=== PATIENT | male | born 1980 | race Caucasian/White ===

== ENCOUNTER 2018-05-25 21:16 | Emergency (ER) | payer MEDICAID ==
[~2018-05-25] VITALS: Ht 175.3 cm; Wt 102.1 kg
[~2018-05-25 21:16] MED LIST: LANTUS SUBQ
[2018-05-25 21:23] VITALS: BP 106/86
[2018-05-25] MEDS ORDERED: LORA10TA19 PO (21:28)
[2018-05-25] MEDS ORDERED: LISI2.5T5 PO (21:29)
[2018-05-25] MEDS ORDERED: SIMV5TAB83 PO (21:29)
--- NOTE | 2018-05-25 21:29 | NUR ---
PT AMBULATED TO LOBBY WITH VSS. ACCOMPANIED BY FAMILY.
--- NOTE | 2018-05-25 21:42 | NUR ---
PT AMBULATED TO BED 2 WITH VSS. ACCOMPANIED BY AND SON.
--- NOTE | 2018-05-25 21:45 | NUR ---
PT PRESENTED ER WITH C/O PAIN TO THE LEFT FOOT 2 TOE X 1 DAY. PT STATED HE DROPPED A STOVE ON THE FOOT. PAIN LEVEL IS 8/10 AT THIS TIME. PT HAS SOME SWELLING AND BRUISING TO SIGHT. PT HAS NKA AND MEDICAL HX IS DM. PT IS A/O X 4.SKIN IS PINK/WARM/DRY; EVEN AND STEADY GAIT; VSS; PATIENT POSITIONED FOR COMFORT; HOB ELEVATED; BEDRAILS UP X2; BED DOWN. ER MD MADE AWARE OF PT STATUS.
--- NOTE | 2018-05-25 22:03 | NUR ---
X RAY AT PT BEDSIDE
[2018-05-25] MEDS ORDERED: ACETAMINOPHEN EXTRA STRENGTH 500 MG TAB PO ONE (23:50)
[2018-05-26 00:15] VITALS: BP 112/84
== END 2018-05-26 00:15 | disposition home or self-care (01) ==
LOC: MED 21:16
DX: S99.922A Unspecified injury of left foot, initial encounter (principal); E11.9 Type 2 diabetes mellitus without complications; I10 Essential (primary) hypertension; Z79.4 Long term (current) use of insulin; Z79.899 Other long term (current) drug therapy; W20.8XXA Other cause of strike by thrown, projected or falling object, initial encounter; Y93.89 Activity, other specified; Y92.89 Other specified places as the place of occurrence of the external cause; Y99.8 Other external cause status
CPT/HCPCS: 73630; 99284; Q0092

== ENCOUNTER 2019-05-21 19:32 | Emergency (ER) | payer MEDICAID ==
[~2019-05-21] VITALS: Ht 180.3 cm; Wt 101.3 kg
[~2019-05-21 19:32] MED LIST changes: +LISI2.5T5 PO; +LORA10TA19 PO; +SIMV5TAB55 PO
[2019-05-21 19:40] VITALS: BP 128/83
--- NOTE | 2019-05-21 19:51 | NUR ---
PT AMBULATES TO LOBBY WITH STEADY GAIT. ACCOMPANYING.
--- NOTE | 2019-05-21 20:32 | NUR ---
PT AMBULATED TO BED 3.
[2019-05-21] MEDS ORDERED: MULTIVITAMIN-12 10 ML, THIAMINE 100 MG, MAGNESIUM SULFATE 50% 2,000 MG, FOLIC ACID 1 MG... IV SCH ×5 (21:00)
[2019-05-21] MEDS ORDERED: PANTOPRAZOLE 40 MG INJ VIAL IVP ONE (21:00)
[2019-05-21] MEDS ORDERED: ONDANSETRON 4 MG/2 ML VIAL IVP ONE (21:00)
[2019-05-21] MEDS ORDERED: THIAMINE 200 MG/2 ML VIAL ONE (21:06)
[2019-05-21] MEDS ORDERED: FOLIC ACID 5 MG/ML SYR ONE (21:06)
[2019-05-21] MEDS ORDERED: MULTIVITAMIN-12 10 ML VIAL IV ONE (21:06)
[2019-05-21 21:10] LABS: BASOPHILS % (AUTO) 0.5 % (0.0-2.0); EOSINOPHILS # (AUTO) 0.1 K/uL (0-0.4); EOSINOPHILS % (AUTO) 2.2 % (0.0-4.0); HEMATOCRIT 33.1 % (36-52); HEMOGLOBIN 10.6 g/dL (12.0-18.0); LYMPHOCYTES # (AUTO) 0.9 K/uL (2.0-11.5); LYMPHOCYTES % (AUTO) 33.7 % (20.5-51.1); MEAN CORPUSCULAR HEMOGLOBIN 24 pg (27-31); MEAN CORPUSCULAR HGB CONC 32 g/dL (33-37); MEAN CORPUSCULAR VOLUME 74.7 fL (80-94); MONOCYTES # (AUTO) 0.2 K/uL (0.8-1.0); MONOCYTES % (AUTO) 6.4 % (1.7-9.3); NEUTROPHILS # (AUTO) 1.5 K/uL (1.8-7.7); NEUTROPHILS % (AUTO) 57.2 % (42.2-75.2); PLATELET COUNT (AUTO) 74 K/uL (140-450); RED BLOOD CELL COUNT(AUTO) 4.44 MIL/uL (4.20-6.10); RED CELL DISTRIBUTION WIDTH 16.2 % (11.6-13.7); WHITE BLOOD COUNT (AUTO) 2.6 K/uL (4.8-10.8)
[2019-05-21] MEDS ORDERED: MAG SULF 2000 MG/WATER PREMIX 50 ML IV ONE (21:15)
[2019-05-21 21:52] LABS: ANION GAP 13.1 (8-16); CHLORIDE 100 mmol/L (98-107); POTASSIUM 4.1 mmol/L (3.5-5.1); SODIUM SERUM 133 mmol/L (136-145)
[2019-05-21 21:53] LABS: ALBUMIN 2.9 g/dL (3.4-5.0); ASPARTATE AMINOTRANSFERASE 261 U/L (15-37); CREATININE 1.2 mg/dL (0.7-1.3); GFR ARICAN-AMERICAN 86 mL/min (>90); GLUCOSE 348 mg/dL (74-106); UREA NITROGEN, BLOOD 17 mg/dL (7-18)
[2019-05-21 22:15] LABS: LIPASE 408 U/L (73-393)
--- NOTE | 2019-05-21 22:15 | NUR ---
38 Y/O MALE PRESENTS TO ED, C/O OF N/V SINCE LAST FRIDAY. PT STATES BINGE DRINKING UNKNOWN AMOUNTS OF BEER LAST FRIDAY. PT DENIES ALCOHOL ABUSE AND STATES IT WAS THE FIRST TIME HE DRANK THIS MUCH. PT DENIES ANY ABDOMINAL PAIN. PT VSS. ERMD AWARE. WILL CONTINUE TO MONITOR.
[2019-05-21 22:24] LABS: ACETONE, SERUM NEGATIVE (NEGATIVE)
[2019-05-21 23:00] VITALS: BP 132/77
--- NOTE | 2019-05-21 23:00 | NUR ---
PT DISCHARGED WITH PAPERWORK. RX RENNY. EDUCATED PT REGARDING MEDICATION AND S/E. EDUCATED PT REGARDING D/C DIAGNOSIS AND INSTRUCTIONS. PT VERBALIZED UNDERSTANDING OF TEACHING. TOLD PT TO FOLLOW UP WITH PCP AND WHEN TO RETURN TO ED. PT VSS. ALL QUESTIONS ANSWERED.
== END 2019-05-21 23:00 | disposition home or self-care (01) ==
LOC: MED 19:32
DX: F10.10 Alcohol abuse, uncomplicated (principal); R10.9 Unspecified abdominal pain; R11.2 Nausea with vomiting, unspecified; E11.9 Type 2 diabetes mellitus without complications; I10 Essential (primary) hypertension; Z79.4 Long term (current) use of insulin; Z79.899 Other long term (current) drug therapy
CPT/HCPCS: 36415; 80053; 82009; 83690; 85025; 96365; 96375; 99283; A9153; C9113; J2405; J3411; J3475; J3490

== ENCOUNTER 2019-09-01 18:31 | Emergency (ER) | payer MEDICAID ==
[~2019-09-01] VITALS: Ht 180.3 cm; Wt 102.1 kg
[2019-09-01 18:38] VITALS: BP 113/73
--- NOTE | 2019-09-01 18:45 | NUR ---
WAIT AT LOBBY.
--- NOTE | 2019-09-01 19:14 | NUR ---
PT AMBULATED TO BED 02.
[2019-09-01 19:25] VITALS: BP 113/73
--- NOTE | 2019-09-01 19:25 | NUR ---
PT ASSESSMENT COMPLETE. PT LAYING IN BED. FAMILY AT BEDSIDE. WILL CONTINUE TO MONTIOR.
[2019-09-01] MEDS ORDERED: DIAZEPAM 5 MG TAB PO ONE (19:40)
[2019-09-01] MEDS ORDERED: KETOROLAC 30 MG/ML VIAL IM ONE (19:40)
--- NOTE | 2019-09-01 19:50 | NUR ---
PT WENT TO XRAY IN WHEELCHAIR.
--- NOTE | 2019-09-01 19:57 | NUR ---
PT RETURNED FROM CT VIA WHEELCHAIR
--- NOTE | 2019-09-01 20:15 | NUR ---
PT REPORTS DECREASED PAIN. WILL CONTINUE TO MONITOR.
--- NOTE | 2019-09-01 20:19 | NUR ---
Patient discharged with v/s stable. Written and verbal after care instructions given and explained. Patient alert, oriented and verbalized understanding of instructions. Ambulatory with steady gait. All questions addressed prior to discharge. ID band removed. Patient advised to follow up with PMD. Rx of LIDODERM, NAPROSYN, AND VALIUM given. Patient educated on indication of medication including possible reaction and side effects. Opportunity to ask questions provided and answered.
== END 2019-09-01 20:19 | disposition home or self-care (01) ==
LOC: MED 18:31
DX: M54.5 Low back pain (principal); M54.2 Cervicalgia; M79.18 Myalgia, other site; I10 Essential (primary) hypertension; E11.9 Type 2 diabetes mellitus without complications; Z79.4 Long term (current) use of insulin; V89.2XXA Person injured in unspecified motor-vehicle accident, traffic, initial encounter; Y93.89 Activity, other specified; Y92.89 Other specified places as the place of occurrence of the external cause; Y99.8 Other external cause status
CPT/HCPCS: 72100; 96372; 99283; J1885

== ENCOUNTER 2020-01-17 21:11 | Emergency (ER) | payer MEDICAID ==
[~2020-01-17] VITALS: Ht 180.3 cm; Wt 105.2 kg
[2020-01-17 21:40] VITALS: BP 138/97
--- NOTE | 2020-01-17 21:44 | NUR ---
PT TRAIGED AND BACK TO LOBBY.
--- NOTE | 2020-01-17 23:59 | NUR ---
PATIENT LEFT WITHOUT BEING SEEN BY DR. MORILLO. NO FURTHER CARE PROVIDED FOR PATIENT.
== END 2020-01-17 23:59 | disposition left against medical advice (07) ==
LOC: MED 21:11
DX: R07.9 Chest pain, unspecified (principal); Z53.21 Procedure and treatment not carried out due to patient leaving prior to being seen by health care provider

== ENCOUNTER 2021-03-17 13:16 | Emergency (ER) | payer MEDICAID, SELFPAY ==
[~2021-03-17] VITALS: Ht 182.9 cm; Wt 99.8 kg
[2021-03-17 13:26] VITALS: BP 126/70
[2021-03-17] MEDS ORDERED: ONDANSETRON 4 MG/2 ML VIAL IVP ONE (13:40)
[2021-03-17] MEDS ORDERED: NACL 0.9% 1,000 ML IV SCH (13:40)
--- NOTE | 2021-03-17 13:45 | NUR ---
PT AMBULATED TO BED 1
--- NOTE | 2021-03-17 14:36 | NUR ---
LAKSHMI AND NOVEL SWAB COLLECTED. HANDED TO LAB.
--- NOTE | 2021-03-17 14:36 | NUR ---
40 YEAR OLD MALE COMPLAINS OF BODYACHES, CHILLS, VOMITTING X 2 DAYS. PT DENIES SOB, COUGH. PT DENIES COVID VACCINATION. PT STATES TOOK IBUPROFEN LAST NIGHT AND HELPED BUT SYMPTOMS RETURNED. IN ED, PATIENT FEBRILE. 02 SAT 94% ON RA. CLEAR BREATH SOUNDS. HEART RATE CHELSI, REGULAR RHYTHM. PT WITH ACTIVE VOMITING IN ED. MD MADE AWARE OF PT STATUS. PMH - HTN, DM2, HLD NKA
[2021-03-17 15:04] LABS: APPEARANCE,URINE CLEAR (CLEAR); BILIRUBIN,URINE 1+ (NEGATIVE); BLOOD, URINE 2+ (NEGATIVE); COLOR,URINE YELLOW (YELLOW); HEMOGLOBIN 9.6 g/dL (12.0-18.0); LEUKOCYTE ESTERASE ,URINE NEGATIVE (NEGATIVE); MEAN CORPUSCULAR HEMOGLOBIN 21 pg (27-31); MEAN CORPUSCULAR HGB CONC 31 g/dL (33-37); MEAN CORPUSCULAR VOLUME 67.2 fL (80-94); NITRITE, URINE NEGATIVE (NEGATIVE); RED BLOOD CELL COUNT(AUTO) 4.61 MIL/uL (4.20-6.10); UGLUCOSE 3+ (NEGATIVE)
[2021-03-17] MEDS ORDERED: ACETAMINOPHEN 325 MG TAB PO ONE (15:05)
[2021-03-17 15:10] LABS: PLATELET COUNT (AUTO) 40 K/uL (140-450); RED CELL DISTRIBUTION WIDTH 17.3 % (11.6-13.7); WHITE BLOOD COUNT (AUTO) 2.4 K/uL (4.8-10.8)
[2021-03-17 15:19] LABS: ALBUMIN 2.2 g/dL (3.4-5.0); ANION GAP 9.8 (8-16); CREATININE 1.2 mg/dL (0.6-1.3); POTASSIUM 3.8 mmol/L (3.5-5.1); TOTAL BILIRUBIN 1.7 mg/dL (0.0-1.0)
[2021-03-17 15:43] LABS: BASOPHILS % (MANUAL) 1 % (0-2); EOSINOPHILS % (MANUAL) 2 % (0-4); LYMPHOCYTES % (MANUAL) 11 % (20-46); MONOCYTES % (MANUAL) 11 % (5-12)
[2021-03-17] MEDS ORDERED: ONDA-24 PO (16:02)
[2021-03-17] MEDS ORDERED: ACET-10509 PO (16:02)
[2021-03-17] MEDS ORDERED: AMOX-1000 PO (16:02)
--- NOTE | 2021-03-17 16:13 | NUR ---
Note alone in EDM - 03/17/21 at 1615 by [facility] [place] Patient discharged with v/s stable. Written and verbal after care instructions given and explained. Patient alert, oriented and verbalized understanding of instructions. Ambulatory with steady gait. All questions addressed prior to discharge. ID band removed. Patient advised to follow up with PMD. Rx of ZOFRAN, AMOXICILLIN, ACETAMINOPHEN given. Patient educated on indication of medication including possible reaction and side effects. Opportunity to ask questions provided and answered.
--- NOTE | 2021-03-17 16:15 | NUR ---
Patient discharged with v/s stable. Written and verbal after care instructions given and explained. Patient alert, oriented and verbalized understanding of instructions. Ambulatory with steady gait. All questions addressed prior to discharge. ID band removed. Patient advised to follow up with PMD. Rx of ZOFRAN, AUGMENTIN, ACETAMINOPHEN given. Patient educated on indication of medication including possible reaction and side effects. Opportunity to ask questions provided and answered.
[2021-03-17 16:16] VITALS: BP 126/70
[2021-03-17 16:35] LABS: RBC,URINE 11-20 (MOD) /HPF (0-5); WBC,URINE 0-5 /HPF (0-5)
== END 2021-03-17 16:15 | disposition home or self-care (01) ==
LOC: MED 13:16
DX: J18.9 Pneumonia, unspecified organism (principal); Z20.822 Contact with and (suspected) exposure to COVID-19; R11.2 Nausea with vomiting, unspecified; E11.65 Type 2 diabetes mellitus with hyperglycemia; I10 Essential (primary) hypertension; Z79.4 Long term (current) use of insulin; Z79.899 Other long term (current) drug therapy
CPT/HCPCS: 71045; 80053; 81001; 83690; 85025; 87426; 96361; 96374; 99284; J2405; U0003; J7030